=== PATIENT | female | born 1985 | race Caucasian/White ===

== ENCOUNTER → 2019-03-02 | Outpatient (CLI) | payer SELFPAY | PROVIDERS: Family Provider Family Medicine; Visit Provider Physician Assistant | DX: M72.2 Plantar fascial fibromatosis (principal); M84.474A Pathological fracture, right foot, initial encounter for fracture ==

== ENCOUNTER 2022-07-19 18:11 | Emergency (ER) | payer OTHER, SELFPAY ==
[2022-07-19 18:12] VITALS: BP 174/130; PULSE 83; RESP 18; TEMP 36.8; O2SAT 96; BMI 34.9
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
[2022-07-19 18:38] VITALS: BP 174/130; PULSE 74; O2SAT 97
[2022-07-19 19:22] VITALS: BP 133/107; PULSE 71; RESP 16; O2SAT 98
[2022-07-19] MEDS: acetaminophen 500 mg Tablet 1000 MG PO (19:35)
== END 2022-07-19 19:25 | disposition home or self-care (01) ==
PROVIDERS: Emergency Provider Emergency Medicine; Family Provider Family Medicine; PCP Family Medicine
DX: S13.4XXA Sprain of ligaments of cervical spine, initial encounter (principal); V49.49XA Driver injured in collision with other motor vehicles in traffic accident, initial encounter
CPT/HCPCS: 70450; 72125; 99284

== ENCOUNTER 2024-11-13 12:21 | Emergency (ER) | payer OTHER, SELFPAY ==
[2024-11-13 12:43] VITALS: BP 153/96; PULSE 87; RESP 16; TEMP 36.8; O2SAT 93
--- NOTE | 2024-11-13 12:52 | XRR_ITS ---
PROCEDURE INFORMATION: Exam: XR Right Foot Exam date and time: 11/13/2024 12:53 PM Age: 39 years old Clinical indication: Injury or trauma; Fall; Work related; Blunt trauma; Injury details: PT fell while at work and is now experiencing burning/tingling pain in her right heel and top of her foot TECHNIQUE: Imaging protocol: Radiologic exam of the right foot. Views: 3 or more views. COMPARISON: CR XR foot RT min 3V* [id number] 03/02/2019 4:25 PM FINDINGS: Bones/joints: No acute fracture or dislocation. Soft tissues: Mild forefoot soft tissue swelling. XR/XR foot RT min 3V* [id number] IMPRESSION: Forefoot soft tissue swelling.
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
--- NOTE | 2024-11-13 13:32 | PC.NURSE ---
pt refusing splint, Viktor ordering CAM boot.
== END 2024-11-13 14:30 | disposition home or self-care (01) ==
PROVIDERS: Emergency Provider Physician Assistant; Family Provider Family Medicine; PCP Nurse Practitioner Family
DX: S93.324A Dislocation of tarsometatarsal joint of right foot, initial encounter (principal); W18.40XA Slipping, tripping and stumbling without falling, unspecified, initial encounter
CPT/HCPCS: 73630; 99283